=== PATIENT | female | born 1980 | race Caucasian/White ===

== ENCOUNTER 2017-02-25 15:11 | Emergency (ER) | payer MEDICAID ==
[~2017-02-25] VITALS: Wt 67.0 kg
[2017-02-25] MEDS ORDERED: ACETAMINOPHEN 500 MG TAB ONE (16:42)
[2017-02-25] MEDS ORDERED: ONDANSETRON (ODT) 4 MG TAB ODT ONE (16:42)
[2017-02-25 17:23] LABS: ADD UMIC YES; UR BILIRUBIN (Dip) NEGATIVE (NEGATIVE); UR BLOOD (Dip) 2+ (NEGATIVE); UR CLARITY CLEAR (CLEAR); UR COLOR LT. YELLOW (YELLOW); UR GLUCOSE (Dip) NEGATIVE (NEGATIVE); UR KETONES (Dip) NEGATIVE (NEGATIVE); UR LEUKOCYTE ESTERASE (Dip) 2+ (NEGATIVE); UR NITRITE (Dip) NEGATIVE (NEGATIVE); UR TOTAL PROTEIN (Dip) NEGATIVE (NEGATIVE); UR UROBILINOGEN (Dip) 0.2 E.U./dL (0.1-1.0)
[2017-02-25 17:32] LABS: ADD SCAN DIFF NO; BASOPHILS % 0.2 % (0.0-2.0); EOSINOPHILS # 0.1 10^3/ul (0.0-0.5); EOSINOPHILS % 1.1 % (0.0-7.0); HEMATOCRIT 37.5 % (37.0-47.0); HEMOGLOBIN 13.3 g/dl (12.0-16.0); LYMPHOCYTES # 3.3 10^3/ul (0.8-2.9); LYMPHOCYTES % 27.9 % (15.0-51.0); MEAN CORPUSCULAR HEMOGLOBIN 33.3 pg (29.0-33.0); MEAN CORPUSCULAR HGB CONC 35.5 g/dl (32.0-37.0); MEAN CORPUSCULAR VOLUME 93.8 fl (82.0-101.0); MEAN PLATELET VOLUME 10.2 fl (7.4-10.4); MONOCYTES % 8.5 % (0.0-11.0); NEUTROPHIL # 7.3 10^3/ul (1.6-7.5); NEUTROPHILS % 61.7 % (39.0-77.0); PLATELET COUNT 246 10^3/UL (140-415); RED CELL DISTRIBUTION WIDTH 11.5 % (11.5-14.5); WHITE BLOOD COUNT 11.8 10^3/ul (4.8-10.8)
[2017-02-25] MEDS ORDERED: CEPH-443 PO (18:45)
[2017-02-25] MEDS ORDERED: ONDA4TAB8 PO (18:46)
[2017-02-25] MEDS ORDERED: ACET500C5 PO (18:46)
[2017-02-25 19:16] LABS: UR BACTERIA MANY
--- NOTE | 2017-02-25 20:32 | RADRPT ---
PROCEDURE: US OB. CLINICAL INDICATION: Pelvic pain TECHNIQUE: Transabdominal and transvaginal views of the pelvis are available for review. COMPARISON: No prior studies are available for comparison. FINDINGS: Within the uterus, there is a single, live, intrauterine . [place]-rump length:2.8 cm heart rate:161 beats per minute Mean gestational sac diameter: 5.18 cm Ultrasound estimated gestational age:10 weeks 4 days The estimated date of delivery is September 19, 2017 No ovarian or adnexal mass lesion is seen. There is no free fluid. IMPRESSION: 1. Single live intrauterine with an estimated gestational age of 10 weeks 4 days. The es timated date of delivery is September 19, 2017. No acute abnormality is present. RPTAT: EE. .Amparo Reyes MD, Date Time Electronically viewed and signed by .Amparo Reyes MD, on 02/25/2017 20:31 .F/
--- NOTE | 2017-02-25 20:46 | ERD ---
ER Documentation Chief Complaint Date/Time DATE: 02/25/17 TIME: 18:38 Chief Complaint PELVIC PAIN 8 WEEKS PREG HPI This is a 36-year-old female who presents to the emergency department today complaining of pelvic pain for the past 3 hours and some spotting that started this morning. Patient states she has not taken any medication for the pain. States she is approximately 7-8 weeks . States that she went to her clinic this morning was referred here for further evaluation. States she has some nausea. Denies any fevers or chills. ROS All systems reviewed and are negative except as per history of present illness. Medications Home Meds Active Scripts Ondansetron Hcl* (Zofran*) 4 Mg Tablet, 4 MG PO Q6H for NAUSEA AND/OR VOMITING, #30 TAB Prov:DENVER HOLLIS PA-C 02/25/17 Acetaminophen* (Tylophen*) 500 Mg Capsule, 1 CAP PO Q6H Y for PAIN AND OR ELEVATED TEMP, #30 CAP Prov:DENVER HOLLIS PA-C 02/25/17 Cephalexin* (Keflex*) 500 Mg Capsule, 500 MG PO QID for 5 Days, CAP Prov:DENVER HOLLIS PA-C 02/25/17 PMhx/Soc Medical and Surgical Hx: pt denies Medical Hx, pt denies Surgical Hx Hx Alcohol Use: No Hx Substance Use: No Hx Tobacco Use: No Smoking Status: Never smoker Physical Exam Vitals Vital Signs Date Time Temp Pulse Resp B/P Pulse Ox O2 Delivery O2 Flow Rate FiO2 02/25/17 15:18 98.1 79 18 104/66 99 Physical Exam Const: No acute distress Head: Atraumatic Eyes: Normal Conjunctiva ENT: Normal External Ears, Nose and Mouth. Neck: Full range of motion..~ No meningismus. Resp: Clear to auscultation bilaterally Cardio: Regular rate and rhythm, no murmurs Abd: Soft, suprapubic tenderness non distended. Normal bowel sounds. No right lower quadrant pain. No specific tenderness at McBurney's. Skin: No petechiae or rashes Back: No midline or flank tenderness. No CVA tenderness. Ext: No cyanosis, or edema Neur: Awake and alert Psych: Normal Mood and Affect Procedures/MDM This is a 36-year-old female who presents to the emergency department today complaining of some vaginal spotting and pelvic pain that started earlier today. Patient was referred here by her clinic clinic at [facility] for further evaluation. Given patient's symptoms and history I did obtain a complete OB workup. Laboratory work shows a mildly elevated white blood cell count. She is not anemic. Platelets are within normal limits. UA shows moderate leukocyte esterase and moderate blood. Patient will be given a prescription for Keflex to treat a urinary tract infection. Rh status is pending at time of signout Beta quant hCG is pending at time of signout Ultrasound is pending at time of signout Patient symptoms at this time is consistent with vaginal bleeding in early as well as urinary tract infection. Patient will be signed out to Kamryn Childs NP pending results of Rh status, beta quant hCG and ultrasound. Patient was given Tylenol, Zofran here in the emergency department. I will give her prescription for Tylenol, Zofran and Keflex for home. Any further orders placed will be placed by Kamryn Childs NP or the attending physician. Departure Diagnosis: Primary Impression: Vaginal bleeding in patient at less than 20 weeks gestation Additional Impression: UTI (urinary tract infection) Urinary tract infection type: site unspecified Hematuria presence: with hematuria Qualified Code: N39.0 - Urinary tract infection with hematuria, site unspecified Condition: DENVER Cross PA-C Feb 25, 2017 18:42
--- NOTE | 2017-02-25 20:47 | EN ---
Date/Time of Note Date/Time of Note DATE: 02/25/17 TIME: 20:45 ER Progress Note Patient was signed out to me by Lizeth SARABIA awaiting Pelvic US, beta Hcg, and RH status. OB ultrasound reviewed by radiologist as single live intrauterine with an estimated gestational age of 10 weeks 4 days. No acute abnormality is present. Patient's beta quant is 242,460.0. Patient's Rh status is O+. Patient is alert and oriented and stable for discharge home. Patient given discharge instructions and prescriptions per Lizeth SARABIA instructions. Return to ED for any high fever, chest pain, difficulty breathing, shortness breath, wheezing, vomiting, diarrhea, abdominal pain or any new or worsening symptoms. Patient verbalizes understanding. All questions answered at discharge. KERRY WANG NP Feb 25, 2017 20:47
[2017-02-25 21:03] VITALS: BP 104/58; PULSE 64; RESP 16; TEMP 98.3
== END 2017-02-25 21:05 | disposition home or self-care (01) ==
LOC: EDBD 15:11 → FTE 15:11
DX: O20.9 Hemorrhage in early pregnancy, unspecified (principal); O23.41 Unspecified infection of urinary tract in pregnancy, first trimester; R10.2 Pelvic and perineal pain; Z3A.10 10 weeks gestation of pregnancy
CPT/HCPCS: 76817; 81001; 84702; 85025; 86900; 86901; Z7610

== ENCOUNTER 2017-06-11 05:54 | Outpatient (CLI) | payer MEDICAID ==
[~2017-06-11] VITALS: Ht 157.5 cm; Wt 75.0 kg
[~2017-06-11 05:54] MED LIST: ACET500C5 PO; CEPH-443 PO; ONDA4TAB8 PO
[2017-06-11 06:13] VITALS: Ht 157.5 cm; Wt 75.0 kg
[2017-06-11 06:39] VITALS: BP 102/55; PULSE 73; RESP 18
[2017-06-11 07:07] LABS: BASOPHILS % 0.1 % (0.0-2.0); EOSINOPHILS # 0.1 10^3/ul (0.0-0.5); EOSINOPHILS % 0.8 % (0.0-7.0); HEMOGLOBIN 11.4 g/dl (12.0-16.0); LYMPHOCYTES # 2.1 10^3/ul (0.8-2.9); MEAN CORPUSCULAR HEMOGLOBIN 33.5 pg (29.0-33.0); MEAN CORPUSCULAR HGB CONC 34.5 g/dl (32.0-37.0); MEAN CORPUSCULAR VOLUME 97.1 fl (82.0-101.0); MEAN PLATELET VOLUME 10.3 fl (7.4-10.4); MONOCYTE # 0.7 10^3/ul (0.3-0.9); MONOCYTES % 6.6 % (0.0-11.0); NEUTROPHIL # 8.2 10^3/ul (1.6-7.5); NEUTROPHILS % 72.3 % (39.0-77.0); PLATELET COUNT 191 10^3/UL (140-415); RED CELL DISTRIBUTION WIDTH 12.3 % (11.5-14.5); WHITE BLOOD COUNT 11.3 10^3/ul (4.8-10.8)
[2017-06-11 07:28] LABS: ALBUMIN/GLOBULIN RATIO 1.13
[2017-06-11 07:29] LABS: ALBUMIN 3.3 g/dl (3.3-4.9); BILIRUBIN,INDIRECT 0.3 mg/dl (0-1.1); BILIRUBIN,TOTAL 0.3 mg/dl (0.2-1.3); CALCIUM 8.3 mg/dl (8.4-10.2); CREATININE 0.5 mg/dl (0.44-1.00); POTASSIUM 3.5 mmol/L (3.5-5.1); TOTAL PROTEIN 6.2 g/dl (6.1-8.1)
[2017-06-11 07:32] LABS: ADD UMIC YES; UR ASCORBIC ACID NEGATIVE (NEGATIVE); UR BACTERIA FEW /HPF (NONE SEEN); UR BILIRUBIN (Dip) NEGATIVE (NEGATIVE); UR BLOOD (Dip) 1+ mg/dL (NEGATIVE); UR CLARITY SLIGHTLY CLOUDY (CLEAR); UR COLOR STRAW (YELLOW); UR GLUCOSE (Dip) NEGATIVE (NEGATIVE); UR KETONES (Dip) NEGATIVE (NEGATIVE); UR LEUKOCYTE ESTERASE (Dip) 3+ Leu/ul (NEGATIVE); UR NITRITE (Dip) NEGATIVE (NEGATIVE); UR RBC 1 /HPF (0-5); UR SPECIFIC GRAVITY (Dip) 1.002 (1.003-1.030); UR SQUAMOUS EPITHELIAL CELL MODERATE /HPF (FEW); UR TOTAL PROTEIN (Dip) NEGATIVE (NEGATIVE); UR UROBILINOGEN (Dip) NEGATIVE (NEGATIVE)
--- NOTE | 2017-06-11 08:09 | RADRPT ---
PROCEDURE: Biophysical profile. CLINICAL INDICATION: Pelvic pain. TECHNIQUE: Multiple sonographic images of the pelvis were obtained with transabdominal technique. Endovaginal evaluation of the cervix was also performed. COMPARISON: 02/25/2017. FINDINGS: There is a single living intrauterine gestation with the fetus in a vertex position. The placenta i s anterior in location, grade 1 to 2. heart tones of 136 beats per minute are identified. The re is normal amniotic fluid volume with an DANIELLA of 13.4 cm. The cervix is closed measuring 4.2 cm. breathing movements = 2 Gross body movements = 2 tone = 2 Qualitative AFV = 2 IMPRESSION: Biophysical profile 8 out of 8. .Sander Iyer MD, Date Time Electronically viewed and signed by .Sander Iyer MD, MD on 06/11/2017 08:09 .T/
--- NOTE | 2017-06-11 08:15 | TRIAGE ---
OB Triage Datetime Report Generated by CPN: 06/11/2017 08:15 Datetime: 06/11/2017 07:13 Maternal Assessment Level of Consciousness: Fully Conscious DTR's/Clonus: DTRs 2+; No Clonus Headache: Denies Blurred Vision: No Respiratory Effort: Unlabored; Regular Rhythm; Equal Expansion Breath Sounds, Left: Clear and Equal Breath Sounds, Right: Clear and Equal Nausea/Vomiting: Denies RUQ Epigastric Pain: Denies Facial Edema: None Fall Risk Assessment History of Falling: (0) No Secondary Diagnosis: (0) No Ambulatory Aid: (0) Bedrest/Nurse Assist Gait: (0) Normal/Bedrest/Immobile Mental Status: (0) Oriented to Own Ability Datetime: 06/11/2017 07:10 Maternal Assessment Level of Consciousness: Fully Conscious DTR's/Clonus: DTRs 2+ Headache: Denies Blurred Vision: No Nausea/Vomiting: Denies RUQ Epigastric Pain: Denies Facial Edema: None Labor Evaluation Frequency: NONE Pattern: Normal: <= 5 Contractions in 10 Minutes Heart Rate FHR Baseline Rate: 140 Monitor Mode: External US FHR Baseline Changes: No Baseline Change Variability: Moderate 6-25 bpm Accelerations: 15X15 Decelerations: None Category: Category I Pain Assessment Pain Scale: 0 Pain Presence: None/Denies Pain Goal: 0 Vaginal Exam Membrane Status: Intact Datetime: 06/11/2017 06:37 Stage of : OB Triage Datetime: 06/11/2017 06:23 Maternal Assessment Level of Consciousness: Fully Conscious DTR's/Clonus: DTRs 2+; No Clonus Headache: Denies Blurred Vision: No Respiratory Effort: Unlabored; Regular Rhythm; Equal Expansion Breath Sounds, Left: Clear and Equal Breath Sounds, Right: Clear and Equal Nausea/Vomiting: Denies RUQ Epigastric Pain: Denies Lower Extremities Edema: None Degree: None Upper Extremities Edema: None Degree: None Facial Edema: None Fall Risk Assessment History of Falling: (0) No Secondary Diagnosis: (0) No Ambulatory Aid: (0) Bedrest/Nurse Assist IV Therapy: (0) No Gait: (0) Normal/Bedrest/Immobile Mental Status: (0) Oriented to Own Ability Fall Score: 0 Fall Risk Score Definition: No Risk: No action required Datetime: 06/11/2017 06:07 Time of Arrival: 06/11/2017 05:42 EGA: 27.1 Arrived By: Wheelchair Arrived From: Home Chief Complaint: N/V, pressure Movement: Present Contractions: Denies/Absent Rupture of Membranes: Denies Vaginal Bleeding: None Vaginal Discharge: Denies Recent Sexual Intercouse: Denies Abdominal Trauma: Not Applicable Patient Complaints: Nausea; Vomiting; Other Time Provider Notified: 06/11/2017 08:00 Provider Notified: DR GAY Initial Plan: EFM X1 (Annotations: Data stored by CPN on behalf of user)
--- NOTE | 2017-06-11 18:47 | QN ---
Documentation Comment iup 27 weeks co of n/vx1 vss exam wnl labs us wnl a/p NV improved dc home JENNIFER GAY MD Jun 11, 2017 18:47
== END 2017-06-11 08:05 | disposition home or self-care (01) ==
LOC: OBT 05:54 → L-D 06:04 → OBT 08:05
PROVIDERS: ATTEND Obstetrics & Gynecology
DX: O21.0 Mild hyperemesis gravidarum (principal); Z3A.27 27 weeks gestation of pregnancy
CPT/HCPCS: 76817; 76818; 80053; 81001; 85025; 87086; Z7500; G0463

== ENCOUNTER 2017-07-14 21:17 | Outpatient (CLI) | payer MEDICAID ==
[~2017-07-14] VITALS: Ht 158.8 cm; Wt 77.6 kg
[2017-07-14 21:55] VITALS: BP 105/63; PULSE 75; RESP 18
--- NOTE | 2017-07-14 23:08 | RADRPT ---
PROCEDURE: Obstetrical ultrasound for biophysical profile CLINICAL INDICATION: Biophysical profile. . TECHNIQUE: Obstetrical ultrasound of the uterus for biophysical profile. Transabdominal and transvaginal views are obtained. COMPARISON: 06/11/2017 FINDINGS: Single intrauterine gestation. Presentation: Cephalic. Placenta: Anterior. No evidence of placental abruption. No evidence of placenta previa. 1.5 cm marginal placental leak is noted. Cervix is closed measuring 4.3 cm as visualized transvaginally. breathing movement = 2/2 tone = 2/2 motion = 2/2 DANIELLA = 2/2 DANIELLA = 19.5 cm heart rate: 146 beats per minute IMPRESSION: Single intrauterine gestation. Biophysical profile 04/18 RPTAT: AADD .Kee Meyer MD, Date Time Electronically viewed and signed by .Kee Meyer MD, on 07/14/2017 23:08 .B/
--- NOTE | 2017-07-14 23:13 | RADRPT ---
PROCEDURE: Obstetrical ultrasound. CLINICAL INDICATION: , evaluation. Pelvic pain. TECHNIQUE: Transabdominal sonographic images of the uterus obtained after first trimester , greater than 14 weeks gestation. Single intrauterine gestation present. COMPARISON: 02/25/2017 FINDINGS: Single intrauterine gestation. There is a cephalic presentation. Measurements were made in order to determine age. The results are as follows: BPD = 29 weeks 4 day(s) HC = 29 weeks 3 day(s) AC = 29 weeks 0 day(s) FL = 29 weeks 6 day(s) DANIELLA = 19.5 cm Heart rate = 163 beats per minute The placenta is anterior. There is no evidence for an abruption or placenta previa. Small marginal p lacenta shah measuring 1.6 cm is noted. Ovaries are not visualized. IMPRESSION: Single intrauterine gestation of approximately 29 weeks 3 days by ultrasound criteria. [place] estimated weight = 1382 g; <3 percentile for gestational age of 31 weeks 5 days. Recommend reconfirmation of gestational age, findings concerning for intrauterine growth restriction . RPTAT: AADD .Kee Meyer MD, MD Date Time Electronically viewed and signed by .Kee Meyer MD, on 07/14/2017 23:13 .B/
[2017-07-14 23:49] LABS: ADD UMIC YES; UR ASCORBIC ACID NEGATIVE (NEGATIVE); UR BILIRUBIN (Dip) NEGATIVE (NEGATIVE); UR BLOOD (Dip) NEGATIVE (NEGATIVE); UR CLARITY CLEAR (CLEAR); UR COLOR YELLOW (YELLOW); UR GLUCOSE (Dip) NEGATIVE (NEGATIVE); UR KETONES (Dip) TRACE mg/dL (NEGATIVE); UR LEUKOCYTE ESTERASE (Dip) TRACE Leu/ul (NEGATIVE); UR MUCUS FEW /HPF (NONE SEEN); UR NITRITE (Dip) NEGATIVE (NEGATIVE); UR RBC 1 /HPF (0-5); UR SPECIFIC GRAVITY (Dip) 1.021 (1.003-1.030); UR SQUAMOUS EPITHELIAL CELL FEW /HPF (FEW); UR TOTAL PROTEIN (Dip) NEGATIVE (NEGATIVE); UR UROBILINOGEN (Dip) NEGATIVE (NEGATIVE)
--- NOTE | 2017-07-15 00:20 | PN ---
Triage Information Date/Time Jul 14, 2017 Reason for visit: Uterine contractions Weeks of Gestation 31w 6d /Para 5/3 Diabetes: none Hypertention: none Additional information Pt c/o back and LAP x 1 week very occasionally but when present the pain is 6/ 10. Pt also reports watery d/c x 5 days. PMHx: none. PSHx: none. NKDA. Objective Vital Signs Date Time Temp Pulse Resp B/P Pulse Ox O2 Delivery O2 Flow Rate FiO2 07/14/17 21:55 98.5 75 18 105/63 Room Air Heart Rate: 140's Heart Rate Comments Accels to 170 bpm. No decels. Contractions: None Exam Deferred Results/Medications Results 24 hrs Laboratory Tests Test 07/14/17 22:10 07/14/17 22:25 Urine Color YELLOW Urine Clarity CLEAR Urine pH 6.0 Urine Specific [place] 1.021 Urine Ketones TRACE A Urine Nitrite NEGATIVE Urine Bilirubin NEGATIVE Urine Urobilinogen NEGATIVE Urine Leukocyte Esterase TRACE A Urine Microscopic RBC 1 Urine Microscopic WBC 3 Urine Squamous Epithelial Cells FEW Urine Mucus FEW A Urine Hemoglobin NEGATIVE Urine Glucose NEGATIVE Urine Total Protein NEGATIVE Membranes Rupture NEGATIVE Fibronectin NEGATIVE Imaging Results EFW 1382 grams. VTX. Anterior placenta. CX 4.3 cm. BPP 8/8. DANIELLA 19.5 cm. Disposition: Discharge Assessment/Plan A: IUP at 31w 6d. False labor. P: D/C home. F/U with the clinic in 2 weeks as scheduled. PTL precautions reviewed and pt encouraged to drink more water. JAYNE WELLS MD Jul 15, 2017 00:20
--- NOTE | 2017-07-15 01:19 | TRIAGE ---
OB Triage Datetime Report Generated by CPN: 07/15/2017 01:19 Datetime: 07/14/2017 21:32 Stage of : OB Triage Maternal Assessment Level of Consciousness: Fully Conscious Headache: Denies Blurred Vision: No Respiratory Effort: Unlabored Nausea/Vomiting: Denies RUQ Epigastric Pain: Denies Facial Edema: None Labor Evaluation Frequency: placed Monitor Mode: External Resting Tone [place]: Relaxed Heart Rate FHR Baseline Rate: 145 Monitor Mode: External US Pain Assessment Pain Scale: 6 Pain Presence: Intermittent Pain Type: Cramping Pain Location: Abdomen; Back Datetime: 06/11/2017 08:05 Time of Arrival: 07/14/2017 21:12 EGA: 31.6 Chief Complaint: [id number] sent from clinic w/ c/o occas lower back and abd pain x1 wk and watery d ischarge x 5 days Movement: Present Contractions: Irregular Rupture of Membranes: Unsure Vaginal Bleeding: None Vaginal Discharge: Present Recent Sexual Intercouse: Denies Abdominal Trauma: Not Applicable Patient Complaints: Cramping; Back Pain Additional Patient Complaints: Pt states drinks little water and today only fluid intake was 2 sod as Time Provider Notified: 07/14/2017 22:17 Provider Notified: Dr Wayne Initial Plan: EFM,ROM+,CVL.EFW,BPP,UA Datetime: 06/11/2017 06:23 Fall Risk Assessment Fall Score: 0 Fall Risk Score Definition: No Risk: No action required Datetime: 06/11/2017 06:07 EGA: 27.1
== END 2017-07-15 00:15 | disposition home or self-care (01) ==
LOC: OBT 21:17 → L-D 21:19 → OBT 07-15 00:15
PROVIDERS: ATTEND Obstetrics & Gynecology
DX: O62.9 Abnormality of forces of labor, unspecified (principal); Z3A.31 31 weeks gestation of pregnancy
CPT/HCPCS: 76815; 76817; 76818; 81001; 82731; 84112; Z7500; G0463

== ENCOUNTER 2017-08-11 11:16 | Outpatient (CLI) | payer MEDICAID ==
[~2017-08-11] VITALS: Ht 157.5 cm; Wt 77.9 kg
[2017-08-11 12:34] VITALS: Ht 157.5 cm; Wt 77.9 kg
--- NOTE | 2017-08-11 13:46 | RADRPT ---
PROCEDURE: Obstetrical ultrasound for biophysical profile CLINICAL INDICATION: Biophysical profile. . TECHNIQUE: Obstetrical ultrasound of the uterus for biophysical profile. Transabdominal views are obtained. COMPARISON: US PELVIS 07/14/2017 FINDINGS: Single intrauterine gestation. Presentation: Cephalic. Placenta: Anterior. No evidence of placental abruption. No evidence of placenta previa. breathing movement = 2/2 tone = 2/2 motion = 2/2 DANIELLA = 2/2 DANIELLA = 16.5 cm heart rate: 137 beats per minute IMPRESSION: Single intrauterine gestation. Biophysical profile 04/18 RPTAT: AADD .Kee Meyer MD, MD Date Time Electronically viewed and signed by .Kee Meyer MD, on 08/11/2017 13:45 .B/
--- NOTE | 2017-08-11 14:17 | PN ---
Triage Information Date/Time Reason for visit: Uterine contractions Weeks of Gestation 35+ /Para 4/1 Diabetes: none Hypertention: none Objective Heart Rate: 140's Contractions: >10 Minutes Apart Disposition: Discharge Assessment/Plan occasional CTXs No cervical change Discharged with precautions WENDY ZENG M.D. Aug 11, 2017 14:17
[2017-08-11] MEDS ORDERED: CALC600T24 PO (14:32)
[2017-08-11] MEDS ORDERED: PNV11TAB PO (14:32)
--- NOTE | 2017-08-11 14:49 | TRIAGE ---
OB Triage Datetime Report Generated by CPN: 08/11/2017 14:49 Datetime: 08/11/2017 14:08 Vaginal Exam Dilatation (cms): 0.0 Effacement (%): 0 Station: -3 Exam By: Cornelia RN Datetime: 08/11/2017 14:00 Labor Evaluation Frequency: Irregular Monitor Mode: External Quality: Mild Pattern: Normal: <= 5 Contractions in 10 Minutes Resting Tone [place]: Relaxed Heart Rate FHR Baseline Rate: 120 Monitor Mode: External US FHR Baseline Changes: No Baseline Change Variability: Moderate 6-25 bpm Accelerations: 15X15 Decelerations: None Category: Category I Pain Assessment Pain Scale: 3 Pain Presence: Intermittent Pain Type: Ache Pain Location: Abdomen Pain Goal: 0 Pain Relief Measures: Comfort Measures Datetime: 08/11/2017 13:00 Labor Evaluation Frequency: Irregular Monitor Mode: External Quality: Mild Pattern: Normal: <= 5 Contractions in 10 Minutes Resting Tone [place]: Relaxed Heart Rate FHR Baseline Rate: 120 Monitor Mode: External US FHR Baseline Changes: No Baseline Change Variability: Moderate 6-25 bpm Accelerations: 15X15 Decelerations: None Category: Category I Pain Assessment Pain Scale: 4 Pain Presence: Intermittent Pain Type: Ache Pain Location: Abdomen Pain Goal: 0 Pain Relief Measures: Comfort Measures Datetime: 08/11/2017 11:56 Stage of : OB Triage Datetime: 08/11/2017 11:45 Assessment Type: Triage Maternal Assessment Level of Consciousness: Fully Conscious DTR's/Clonus: DTRs 2+; No Clonus Headache: Denies Blurred Vision: No Respiratory Effort: Unlabored; Regular Rhythm; Equal Expansion Breath Sounds, Left: Clear and Equal Breath Sounds, Right: Clear and Equal Nausea/Vomiting: Denies RUQ Epigastric Pain: Denies Lower Extremities Edema: Bilateral Lower Extremities Degree: Trace Upper Extremities Edema: None Degree: None Facial Edema: None Fall Risk Assessment History of Falling: (0) No Secondary Diagnosis: (0) No Ambulatory Aid: (0) Bedrest/Nurse Assist IV Therapy: (0) No Gait: (0) Normal/Bedrest/Immobile Mental Status: (0) Oriented to Own Ability Fall Score: 0 Fall Risk Score Definition: No Risk: No action required Datetime: 08/11/2017 11:30 Time of Arrival: 08/11/2017 10:47 EGA: 35.6 Arrived By: Ambulatory Arrived From: Home Chief Complaint: Lower abdomen pain Movement: Present Contractions: Denies/Absent Rupture of Membranes: Denies Vaginal Bleeding: None Vaginal Discharge: Denies Recent Sexual Intercouse: Denies Abdominal Trauma: Not Applicable Patient Complaints: None Time Provider Notified: 08/11/2017 12:30 Provider Notified: Tevin Initial Plan: NST, BPP, VE Datetime: 07/15/2017 00:10 Stage of : OB Triage FHR Baseline Changes: No Baseline Change Variability: Moderate 6-25 bpm Accelerations: 15X15 Decelerations: None Datetime: 07/14/2017 23:20 Stage of : OB Triage Heart Rate FHR Baseline Rate: 140 Monitor Mode: External US Datetime: 07/14/2017 22:40 Stage of : OB Triage Amniotic Fluid Amount: None Pool: Negative Datetime: 07/14/2017 22:16 Stage of : OB Triage Monitor Mode: External Quality: Mild Pattern: Normal: <= 5 Contractions in 10 Minutes Resting Tone [place]: Relaxed Heart Rate FHR Baseline Rate: 140 Monitor Mode: External US FHR Baseline Changes: No Baseline Change Variability: Moderate 6-25 bpm Accelerations: 15X15 Decelerations: None Category: Category I Pain Presence: Intermittent Pain Type: Cramping; Ache Pain Location: Abdomen; Back Datetime: 06/11/2017 08:05 EGA: 31.6 Datetime: 06/11/2017 06:23 Fall Score: 0 Fall Risk Score Definition: No Risk: No action required Datetime: 06/11/2017 06:07 EGA: 27.1
== END 2017-08-11 14:35 | disposition home or self-care (01) ==
LOC: OBT 11:16 → L-D 11:16 → OBT 14:35
PROVIDERS: ATTEND Obstetrics & Gynecology
DX: O62.9 Abnormality of forces of labor, unspecified (principal); Z3A.35 35 weeks gestation of pregnancy
CPT/HCPCS: 76818; Z7500; G0463

== ENCOUNTER 2017-09-06 14:22 | Observation (INO) | END 2017-09-07 12:55 | disposition home or self-care (01) ==

== ENCOUNTER 2017-09-09 09:36 | Outpatient (CLI) | END 2017-09-09 12:05 | disposition home or self-care (01) ==

== ENCOUNTER 2017-09-13 18:57 | Inpatient (IN) | END 2017-09-17 18:00 | disposition home or self-care (01) | DRG 775 ==